=== PATIENT | female | born 1935 | race Caucasian/White ===

== ENCOUNTER 2024-02-16 06:29 | Day surgery (SDC) | payer MEDICARE, SELFPAY ==
[2024-02-16 12:00] VITALS: BMI 39.2
[2024-02-16 12:06] VITALS: BMI 39.2
[2024-02-16 12:07] VITALS: BP 148/71
[2024-02-16] MEDS: LOPRESSOR 100 MG PO (12:37)
[2024-02-16 15:24] VITALS: BP 98/57
[2024-02-16 15:33] VITALS: BP 114/61
[2024-02-16 15:45] VITALS: BP 127/89
[2024-02-16 16:00] VITALS: BP 119/87
== END 2024-02-16 16:30 | disposition home or self-care (01) ==
LOC: SDS 06:29
PROVIDERS: ATTENDING PHYSICIAN Internal Medicine Gastroenterology
DX: C15.5 Malignant neoplasm of lower third of esophagus (principal); K22.2 Esophageal obstruction; K22.89 Other specified disease of esophagus; K22.81 Esophageal polyp; R59.1 Generalized enlarged lymph nodes
CPT/HCPCS: 43249; 43237; 43239; 88305; C1726